=== PATIENT | female | born 1975 | race Two or more races ===

== ENCOUNTER 2023-03-06 09:54 | Emergency (ER) | payer OTHER ==
[~2023-03-06] VITALS: Ht 160 cm; Wt 57.6 kg
[2023-03-06] MEDS ORDERED: AMLODIPINE BESYL5 MG PO (10:15)
== END 2023-03-06 17:37 ==
LOC: ER 09:54
DX: S89.81XA Other specified injuries of right lower leg, initial encounter (principal); W18.39XA Other fall on same level, initial encounter; Y93.89 Activity, other specified; Y92.89 Other specified places as the place of occurrence of the external cause; Y99.8 Other external cause status; I10 Essential (primary) hypertension